=== PATIENT | female | born 1970 | race Caucasian/White ===

== ENCOUNTER 2016-10-11 09:20 | Emergency (ER) | payer OTHER ==
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
--- NOTE | 2016-10-11 10:18 | ED ORDER SUMMARY ---
..... Patient: HELIO DIAZ OrderSheet [facility] VisitID: [id number] [address] [place] [address] 45y, F Registration Date/Time: 10/11/2016 ORDER SHEET Weight: 65.7 kg (stated) Allergies: None GENERAL ORDERS: Cervical Spine 2 or 3V Urgent (09:49 10/11/2016 Laureano Patel per protocol) (Ack 10:06 Abraham) (Cancelled: Physician Order10:26 Laureano Patel) MEDICATION ORDERS: IV FLUIDS: ORDER SHEET NOTES: [Electronically signed by Wilman Elam R.N. (10:32 10/11/2016)] [Electronically signed by Chucho Reddy MD (23:24 10/12/2016)] [Electronically locked/signed by Wilman Elam R.N. (10:32 10/11/2016)]
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
--- NOTE | 2016-10-11 10:18 | ED ORDER SUMMARY ---
..... Patient: HELIO DIAZ OrderSheet [facility] VisitID: [id number] [address] [address] 45y, F Registration Date/Time: 10/11/2016 ORDER SHEET Weight: 65.7 kg (stated) Allergies: None GENERAL ORDERS: Cervical Spine 2 or 3V Urgent (09:49 10/11/2016 Laureano Patel per protocol) (Ack 10:06 Abraham) (Cancelled: Physician Order10:26 Laureano Patel) MEDICATION ORDERS: IV FLUIDS: ORDER SHEET NOTES: [Electronically signed by Wilman Elam R.N. (10:32 10/11/2016)] [Electronically signed by Chucho Reddy MD (23:24 10/12/2016)] [Electronically locked/signed by Wilman Elam R.N. (10:32 10/11/2016)]
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
--- NOTE | 2016-10-12 23:24 | ED MAR SUMMARY ---
..... Medication Administration Record [facility] [address], [place] [id number] Patient: HELIO DIAZ Visit ID: [id number] 45y, F Weight: 65.7 kg Height/Length: 60 in BMI: 28.3 ALLERGIES: None
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
--- NOTE | 2016-10-12 23:24 | ED MED RECONCILIATION SUMMARY ---
Patient: HELIO DIAZ Medication Reconciliation Report [facility] VisitID: [id number] [address] [place] [address] 45y, F Registration Date/Time: 10/11/2016 Weight: 65.7 kg Height/Length: 60 in. BMI: 28.3 ALLERGIES: None The patient's Home Medications are listed below: NONE. The source(s) of the original Home Medication information: Not obtained. The following Medications were given to the patient in the Emergency Department: None. The following Medications were prescribed to the patient: Motrin (available over the counter): take according to label instructions. -- Chucoh Reddy MD Flexeril 10 mg: Take 1 orally every 8 hours as needed for muscle spasm. Dispense twenty (20). No refills. Substitution is permissible. -- Chucho Reddy MD
--- NOTE | 2016-10-12 23:24 | ED MAR SUMMARY ---
..... Medication Administration Record [facility] [address] [place] [place], [place] [id number] Patient: HELIO DIAZ Visit ID: [id number] 45y, F Weight: 65.7 kg Height/Length: 60 in BMI: 28.3 ALLERGIES: None
--- NOTE | 2016-10-12 23:24 | ED MED RECONCILIATION SUMMARY ---
Patient: HELIO DIAZ Medication Reconciliation Report [facility] VisitID: [id number] [address] [place] [address] 45y, F Registration Date/Time: 10/11/2016 Weight: 65.7 kg Height/Length: 60 in. BMI: 28.3 ALLERGIES: None The patient's Home Medications are listed below: NONE. The source(s) of the original Home Medication information: Not obtained. The following Medications were given to the patient in the Emergency Department: None. The following Medications were prescribed to the patient: Motrin (available over the counter): take according to label instructions. -- Chucho Reddy MD Flexeril 10 mg: Take 1 orally every 8 hours as needed for muscle spasm. Dispense twenty (20). No refills. Substitution is permissible. -- Chucho Reddy MD
== END 2016-10-11 10:28 | disposition home or self-care (01) ==
LOC: ED SRH 09:20
DX: S43.421A Sprain of right rotator cuff capsule, initial encounter (principal); S16.1XXA Strain of muscle, fascia and tendon at neck level, initial encounter; S29.012A Strain of muscle and tendon of back wall of thorax, initial encounter; V43.52XA Car driver injured in collision with other type car in traffic accident, initial encounter; Y93.89 Activity, other specified; Y92.410 Unspecified street and highway as the place of occurrence of the external cause; Y99.9 Unspecified external cause status